=== PATIENT | female | born 1955 | race Caucasian/White ===

== ENCOUNTER 2017-07-23 06:50 | Inpatient (IN) | payer MEDICARE, MEDICAID ==
[2017-07-15 11:17] LABS: BASOPHILS % (AUTO) 0.4 % (0-1); EOSINOPHILS # (AUTO) 0.1 X10'3 (0-0.9); LYMPHOCYTES # (AUTO) 2.6 X10'3 (1.1-4.8); LYMPHOCYTES % (AUTO) 28.4 % (21-51); MEAN CORPUSCULAR HGB CONC 34.4 % (33.0-36.5); MEAN CORPUSCULAR VOLUME 101.6 FL (78-98); MEAN PLATELET VOLUME 8.3 FL (7.4-10.4); MONOCYTES # (AUTO) 0.4 X10'3 (0-0.9); MONOCYTES % (AUTO) 4.8 % (2-12); NEUTROPHILS # (AUTO) 6.1 X10'3 (1.8-7.7); NEUTROPHILS % (AUTO) 65.4 % (42-75); PRE OP HEMATOCRIT 40.8 % (35.0-45.0); PRE OP HEMOGLOBIN 14.1 g/dL (12.0-16.0); PRE OP PLATELET COUNT 149 X10'3 (140-440); RED BLOOD COUNT 4.02 X10'6 (4.20-5.60); RED CELL DISTRIBUTION WIDTH 13.3 % (11.5-14.5)
[2017-07-15 11:18] LABS: CLARITY,URINE Clear (Clear); COLOR,URINE Yellow (Yellow); GLUCOSE, URINE Negative (Neg); KETONES,URINE Negative (Neg); LEUKOCYTE ESTERASE ,URINE Negative (Neg); NITRITES, URINE Negative (Neg); OCCULT BLOOD,URINE Negative (Neg); PROTEIN,URINE Negative (Neg)
[2017-07-15 11:31] LABS: UA COLLECTION TYPE CLN CATCH MIDSTREAM
[2017-07-15 11:31] LABS: ALBUMIN 3.6 G/DL (3.4-5.0); ALKALINE PHOSPHATASE 125 IU/L (46-116); BLOOD UREA NITROGEN 14 MG/DL (7-18); BUN/CREATININE RATIO 12.3 (6.6-38.0); CALCIUM 8.6 MG/DL (8.5-10.1); CHLORIDE 106 MMOL/L (99-107); CREATININE 1.14 MG/DL (0.40-0.90); PRE OP ALT 27 U/L (30-65); PRE OP ANION GAP 10 (8-16); PRE OP AST 23 U/L (10-37); PRE OP BILIRUB, TOTAL 0.3 MG/DL (0.0-1.0); PRE OP GLUCOSE 110 MG/DL (70-104); PRE OP POTASSIUM 3.7 MMOL/L (3.4-5.1); PRE OP SODIUM 142 MMOL/L (135-145); TOTAL CARBON DIOXIDE 25.9 MMOL/L (24-32); TOTAL PROTEIN 7.3 G/DL (6.4-8.2); eGFR 48 ML/MIN
[2017-07-23] VITALS (22 sets, daily range): BP systolic 90–151; BP diastolic 50–90
[~2017-07-23] VITALS: Ht 164.5 cm; Wt 97.4 kg
[~2017-07-23 06:50] MED LIST: AFRIN NS; ALBU8HFA PO; ATOR-2 PO; BACL20TA PO; CHLO-188 PO; ESCI20TA38 PO; FLUT1DIS7 INH; FURO-150 PO; GABA600T2 PO; HYDR-565 PO; IPRA4AER IH; LIDOcaine 1% (10mg/ml) 2ml vial ONE; MELO-102 PO; MONT10TA21 PO; OMEP40CA37 PO; POLY17PO10 PO; TIOT18CA3 INH; TOPI100T18 PO; TRAZ-143 PO; VANCOMYCIN INJ 1000 MG in NORMAL SALINE 250ml IV.SOLN IV ONE; VARE1TAB21 PO; albuterol 2.5 MG/3 ML nebule NEB ONE; cefazolin/dext.iso 2gm/50ml 50 ML IV ONE; famotidine 20mg tablet PO ONE; ringers solution, lacted 1,000 ML IV SCH
[2017-07-23] MEDS ORDERED: ROPIVAcaine 0.5% (5mg/ml) 30ml vial ONE (06:51)
[2017-07-23 07:26] LABS: INR 0.9 INR; PARTIAL THROMBOPLASTIN TIME 27 SECONDS (22-32); PROTHROMBIN TIME 9.5 SECONDS (9.0-12.0)
[2017-07-23] MEDS ORDERED: ringers solution, lacted 1,000 ML IV SCH (07:37)
[2017-07-23] MEDS ORDERED: fentaNYL/PF 50MCG/1 ML 2ML syringe IV PRN ×2 (07:40)
[2017-07-23] MEDS ORDERED: ondansetron/PF 4mg/2ml inj IV PRN ×2 (07:40→13:15)
[2017-07-23] MEDS ORDERED: meperidine/PF 50mg/ml syringe IV PRN ×3 (07:40)
[2017-07-23] MEDS ORDERED: proCHLORperazine 10 MG/2 ml inj IV PRN (07:40)
[2017-07-23] MEDS ORDERED: desflurane 240ml liquid inh. IH ONE (09:00)
[2017-07-23] MEDS ORDERED: midazolam 2 mg/2 ml injection ONE (09:27)
[2017-07-23] MEDS ORDERED: propofol inj 0 ML IV ONE (09:40)
[2017-07-23] MEDS ORDERED: propofol inj 20 ML IV ONE (09:40)
[2017-07-23] MEDS ORDERED: fentaNYL /PF 50mcg/ml 5ml ampule ONE (09:41)
[2017-07-23] MEDS ORDERED: LIDOcaine 2% (20mg/ml) 5ml vial ONE (09:41)
[2017-07-23] MEDS ORDERED: dexamethasone sod phosphate 4mg/ml inj. ONE (09:41)
[2017-07-23] MEDS ORDERED: rocuronium 10mg/ml inj IV ONE (09:41)
[2017-07-23] MEDS ORDERED: ePHEDrine 50MG/ML INJ. ONE (09:56)
[2017-07-23] MEDS ORDERED: ondansetron/PF 4mg/2ml inj ONE (10:06)
[2017-07-23] MEDS ORDERED: diphenhydrAMINE 25mg capsule PO PRN ×2 (13:15)
[2017-07-23] MEDS ORDERED: magnesium hydroxide 30ml (MOM) UD suspension PO PRN (13:15)
[2017-07-23] MEDS ORDERED: naloxone 0.4 mg/ml inj IV PRN (13:15)
[2017-07-23] MEDS ORDERED: bisacodyl 10mg suppository rectal RC PRN (13:15)
[2017-07-23] MEDS ORDERED: metoclopramide 5 mg/ml inj IV PRN (13:15)
[2017-07-23] MEDS ORDERED: acetaminophen 325mg tablet PO PRN (13:15)
[2017-07-23] MEDS ORDERED: HYDROcodone/acetaminophen 10/325mg tab PO PRN (13:15)
[2017-07-23] MEDS ORDERED: mag hydrox/Alum hydrox/simeth 30ml oral suspension PO PRN (13:15)
[2017-07-23] MEDS ORDERED: CADD PCA waste documentation MC PRN (13:15)
[2017-07-23] MEDS: HYDROmorphone/NS 1 mg/ml CADD 50 ML IV SCH ×6 (14:20→23:00)
[2017-07-23] MEDS: potassium cl 20mEq in 1/2 NS 1,000 ML IV SCH ×2 (15:43→21:13)
[2017-07-23] MEDS: cefazolin 1gm/NS 100mL 100 ML IV SCH (15:45)
[2017-07-23] MEDS: celeCOXIB 100mg capsule PO SCH (19:52)
[2017-07-23] MEDS: ascorbic acid 500mg tablet PO SCH (19:52)
[2017-07-23] MEDS: sennosides/docusate sodium tablet PO SCH (19:54)
[2017-07-23] MEDS ORDERED: vancomycin/NS 1 GM ADD-VANTAGE 250 ML IV SCH (20:00)
[2017-07-23] MEDS: sennosides 8.6mg tablet PO SCH (21:00)
[2017-07-23] MEDS: oxymetazoline 15 ML nasal spray NS SCH (21:43)
[2017-07-23] MEDS: varenicline tartrate 0.5mg tablet PO SCH (21:44)
[2017-07-23] MEDS: gabapentin 300mg capsule PO SCH (21:48)
[2017-07-23] MEDS: baclofen 10mg tablet PO SCH (21:48)
[2017-07-23] MEDS: montelukast 10mg tablet PO SCH (21:48)
[2017-07-23] MEDS: atorvastatin 20mg tablet PO SCH (21:49)
[2017-07-23] MEDS: traZODone 50mg tablet PO SCH (21:49)
[2017-07-23] MEDS: topiramate 100mg tablet PO SCH (21:50)
[2017-07-24] VITALS (11 sets, daily range): BP systolic 79–114; BP diastolic 40–66
[2017-07-24] MEDS: cefazolin 1gm/NS 100mL 100 ML IV SCH (00:02)
[2017-07-24] MEDS: HYDROmorphone/NS 1 mg/ml CADD 50 ML IV SCH ×4 (01:00→07:00)
[2017-07-24] MEDS ORDERED: normal saline 250ml IV soln 250 ML IV ONE (01:55)
[2017-07-24] MEDS: potassium cl 20mEq in 1/2 NS 1,000 ML IV SCH ×3 (02:28→18:39)
[2017-07-24 06:27] LABS: BASOPHILS % (AUTO) 0.2 % (0-1); EOSINOPHILS # (AUTO) 0.1 X10'3 (0-0.9); EOSINOPHILS % (AUTO) 1.1 % (0-6); HEMATOCRIT 26.7 % (35.0-45.0); HEMOGLOBIN 9.1 g/dl (12.0-16.0); LYMPHOCYTES # (AUTO) 1.8 X10'3 (1.1-4.8); LYMPHOCYTES % (AUTO) 17.8 % (21-51); MEAN CORPUSCULAR HEMOGLOBIN 34.6 PG (27.0-31.0); MEAN CORPUSCULAR VOLUME 101.6 FL (78-98); MEAN PLATELET VOLUME 8.4 FL (7.4-10.4); MONOCYTES # (AUTO) 0.8 X10'3 (0-0.9); MONOCYTES % (AUTO) 7.4 % (2-12); NEUTROPHILS # (AUTO) 7.5 X10'3 (1.8-7.7); NEUTROPHILS % (AUTO) 73.5 % (42-75); PLATELET COUNT 102 X10'3 (140-440); RED BLOOD COUNT 2.63 X10'6 (4.20-5.60); WHITE BLOOD COUNT 10.2 X10'3 (4.5-11.0)
[2017-07-24 06:38] LABS: ANION GAP 5 (8-16); CHLORIDE 107 MMOL/L (99-107); POTASSIUM 4.4 MMOL/L (3.5-5.1); SODIUM 141 MMOL/L (135-145); TOTAL CARBON DIOXIDE 29.4 MMOL/L (24-32)
[2017-07-24] MEDS: HYDROcodone/acetaminophen 10/325mg tab PO PRN ×4 (07:10→21:06)
[2017-07-24] MEDS ORDERED: chlorpheniramine 4mg tablet PO PRN (07:50)
[2017-07-24] MEDS ORDERED: ALBUTEROL PO PRN (07:50)
[2017-07-24] MEDS: gabapentin 300mg capsule PO SCH ×2 (07:53→21:07)
[2017-07-24] MEDS: celeCOXIB 100mg capsule PO SCH ×2 (07:53→21:07)
[2017-07-24] MEDS: sennosides/docusate sodium tablet PO SCH ×2 (07:53→20:00)
[2017-07-24] MEDS: ascorbic acid 500mg tablet PO SCH ×2 (07:53→21:07)
[2017-07-24] MEDS: pantoprazole 40mg Tablet.DR PO SCH (07:53)
[2017-07-24] MEDS: multivitamins, therapeutics tablet PO SCH (07:53)
[2017-07-24] MEDS: baclofen 10mg tablet PO SCH ×2 (07:54→21:08)
[2017-07-24] MEDS: topiramate 100mg tablet PO SCH ×2 (07:54→21:07)
[2017-07-24] MEDS: enoxaparin 40mg/0.4ml syringe SQ SCH (07:55)
[2017-07-24] MEDS: varenicline tartrate 0.5mg tablet PO SCH ×2 (07:56→21:12)
[2017-07-24] MEDS ORDERED: non-formulary drug (Tiotropium Bromide (Spiriva) 1 PUFF) INH SCH (08:00)
[2017-07-24] MEDS ORDERED: ipratropium/albuterol 3ml nebule IH PRN (08:00)
[2017-07-24] MEDS: furosemide 20MG tablet PO SCH (08:00)
[2017-07-24] MEDS: oxymetazoline 15 ML nasal spray NS SCH ×2 (08:06→21:12)
[2017-07-24] MEDS ORDERED: normal saline 500ml IV soln 1,000 ML IV ONE (09:25)
[2017-07-24] MEDS: sennosides 8.6mg tablet PO SCH (21:00)
[2017-07-24] MEDS: montelukast 10mg tablet PO SCH (21:07)
[2017-07-24] MEDS: atorvastatin 20mg tablet PO SCH (21:07)
[2017-07-24] MEDS: polyethylene glycol 3350 17gm powd pack PO PRN (21:16)
[2017-07-24] MEDS: traZODone 50mg tablet PO SCH (22:38)
[2017-07-25] VITALS (13 sets, daily range): BP systolic 78–122; BP diastolic 43–73
[2017-07-25] MEDS: HYDROcodone/acetaminophen 10/325mg tab PO PRN ×3 (01:08→11:42)
[2017-07-25] MEDS: potassium cl 20mEq in 1/2 NS 1,000 ML IV SCH (05:13)
[2017-07-25 06:00] LABS: BASOPHILS % (AUTO) 0.3 % (0-1); EOSINOPHILS # (AUTO) 0.1 X10'3 (0-0.9); EOSINOPHILS % (AUTO) 0.5 % (0-6); HEMATOCRIT 24.4 % (35.0-45.0); HEMOGLOBIN 8.4 g/dl (12.0-16.0); MEAN CORPUSCULAR HEMOGLOBIN 35.1 PG (27.0-31.0); MEAN CORPUSCULAR HGB CONC 34.5 % (33.0-36.5); MEAN CORPUSCULAR VOLUME 101.8 FL (78-98); MEAN PLATELET VOLUME 8.3 FL (7.4-10.4); MONOCYTES # (AUTO) 0.6 X10'3 (0-0.9); MONOCYTES % (AUTO) 5.4 % (2-12); NEUTROPHILS # (AUTO) 8.2 X10'3 (1.8-7.7); NEUTROPHILS % (AUTO) 75.8 % (42-75); PLATELET COUNT 99 X10'3 (140-440); RED CELL DISTRIBUTION WIDTH 13.1 % (11.5-14.5); WHITE BLOOD COUNT 10.8 X10'3 (4.5-11.0)
[2017-07-25] MEDS: sennosides/docusate sodium tablet PO SCH ×2 (08:00→20:00)
[2017-07-25] MEDS: multivitamins, therapeutics tablet PO SCH (08:23)
[2017-07-25] MEDS: gabapentin 300mg capsule PO SCH ×2 (08:23→20:41)
[2017-07-25] MEDS: celeCOXIB 100mg capsule PO SCH ×2 (08:24→20:42)
[2017-07-25] MEDS: ascorbic acid 500mg tablet PO SCH ×2 (08:24→20:41)
[2017-07-25] MEDS: pantoprazole 40mg Tablet.DR PO SCH (08:24)
[2017-07-25] MEDS: topiramate 100mg tablet PO SCH ×2 (08:24→20:41)
[2017-07-25] MEDS: oxymetazoline 15 ML nasal spray NS SCH ×2 (08:25→20:42)
[2017-07-25] MEDS: baclofen 10mg tablet PO SCH ×2 (08:25→20:41)
[2017-07-25] MEDS: varenicline tartrate 0.5mg tablet PO SCH ×2 (08:25→20:41)
[2017-07-25] MEDS: enoxaparin 40mg/0.4ml syringe SQ SCH (08:26)
[2017-07-25] MEDS: furosemide 20MG tablet PO SCH (10:02)
[2017-07-25] MEDS: montelukast 10mg tablet PO SCH (20:40)
[2017-07-25] MEDS: traZODone 50mg tablet PO SCH (20:41)
[2017-07-25] MEDS: atorvastatin 20mg tablet PO SCH (20:41)
[2017-07-25] MEDS: polyethylene glycol 3350 17gm powd pack PO PRN (20:47)
[2017-07-25] MEDS: sennosides 8.6mg tablet PO SCH (20:53)
[2017-07-25 22:38] LABS: HEMATOCRIT 25.3 % (35.0-45.0); HEMOGLOBIN 8.7 g/dl (12.0-16.0); MEAN CORPUSCULAR HEMOGLOBIN 34.1 PG (27.0-31.0); MEAN CORPUSCULAR HGB CONC 34.4 % (33.0-36.5); MEAN CORPUSCULAR VOLUME 99.2 FL (78-98); MEAN PLATELET VOLUME 8.6 FL (7.4-10.4); PLATELET COUNT 99 X10'3 (140-440); RED BLOOD COUNT 2.55 X10'6 (4.20-5.60); WHITE BLOOD COUNT 9.8 X10'3 (4.5-11.0)
[2017-07-26 00:47] VITALS: BP 114/55
[2017-07-26 01:22] VITALS: BP 99/62
[2017-07-26] MEDS: HYDROcodone/acetaminophen 10/325mg tab PO PRN ×3 (05:35→15:07)
[2017-07-26 06:00] VITALS: BP 105/66
[2017-07-26 06:29] LABS: BASOPHILS % (AUTO) 0.3 % (0-1); EOSINOPHILS # (AUTO) 0.2 X10'3 (0-0.9); EOSINOPHILS % (AUTO) 2.2 % (0-6); HEMOGLOBIN 10.1 g/dl (12.0-16.0); LYMPHOCYTES % (AUTO) 21.3 % (21-51); MEAN CORPUSCULAR HGB CONC 34.7 % (33.0-36.5); MEAN CORPUSCULAR VOLUME 97.8 FL (78-98); MEAN PLATELET VOLUME 8.5 FL (7.4-10.4); MONOCYTES # (AUTO) 0.5 X10'3 (0-0.9); MONOCYTES % (AUTO) 5.7 % (2-12); NEUTROPHILS # (AUTO) 6.6 X10'3 (1.8-7.7); NEUTROPHILS % (AUTO) 70.5 % (42-75); PLATELET COUNT 104 X10'3 (140-440); RED BLOOD COUNT 2.96 X10'6 (4.20-5.60); RED CELL DISTRIBUTION WIDTH 15.9 % (11.5-14.5); WHITE BLOOD COUNT 9.4 X10'3 (4.5-11.0)
[2017-07-26] MEDS: sennosides/docusate sodium tablet PO SCH ×2 (08:00→20:00)
[2017-07-26] MEDS: baclofen 10mg tablet PO SCH ×2 (08:31→20:31)
[2017-07-26] MEDS: ascorbic acid 500mg tablet PO SCH ×2 (08:31→20:32)
[2017-07-26] MEDS: multivitamins, therapeutics tablet PO SCH (08:31)
[2017-07-26] MEDS: topiramate 100mg tablet PO SCH ×2 (08:32→20:32)
[2017-07-26] MEDS: gabapentin 300mg capsule PO SCH ×2 (08:32→20:31)
[2017-07-26] MEDS: celeCOXIB 100mg capsule PO SCH ×2 (08:33→20:30)
[2017-07-26] MEDS: varenicline tartrate 0.5mg tablet PO SCH ×2 (08:33→20:30)
[2017-07-26] MEDS: oxymetazoline 15 ML nasal spray NS SCH ×2 (08:34→20:30)
[2017-07-26] MEDS: pantoprazole 40mg Tablet.DR PO SCH (08:34)
[2017-07-26] MEDS: enoxaparin 40mg/0.4ml syringe SQ SCH (08:35)
[2017-07-26 10:00] VITALS: BP 94/51
[2017-07-26 18:00] VITALS: BP 120/65
[2017-07-26] MEDS: montelukast 10mg tablet PO SCH (20:32)
[2017-07-26] MEDS: atorvastatin 20mg tablet PO SCH (20:42)
[2017-07-26] MEDS: polyethylene glycol 3350 17gm powd pack PO PRN (20:43)
[2017-07-26] MEDS: sennosides 8.6mg tablet PO SCH (21:00)
[2017-07-26] MEDS: traZODone 50mg tablet PO SCH (21:52)
[2017-07-26 22:00] VITALS: BP 115/70
[2017-07-27] MEDS: HYDROcodone/acetaminophen 10/325mg tab PO PRN ×2 (03:36→07:40)
[2017-07-27 06:00] VITALS: BP 90/52
[2017-07-27] MEDS: sennosides/docusate sodium tablet PO SCH (07:28)
[2017-07-27] MEDS: varenicline tartrate 0.5mg tablet PO SCH (07:36)
[2017-07-27] MEDS: gabapentin 300mg capsule PO SCH (07:37)
[2017-07-27] MEDS: ascorbic acid 500mg tablet PO SCH (07:37)
[2017-07-27] MEDS: multivitamins, therapeutics tablet PO SCH (07:39)
[2017-07-27] MEDS: topiramate 100mg tablet PO SCH (07:39)
[2017-07-27] MEDS: pantoprazole 40mg Tablet.DR PO SCH (07:41)
[2017-07-27] MEDS: baclofen 10mg tablet PO SCH (07:42)
[2017-07-27] MEDS: celeCOXIB 100mg capsule PO SCH (07:43)
[2017-07-27] MEDS: oxymetazoline 15 ML nasal spray NS SCH (07:44)
[2017-07-27] MEDS: enoxaparin 40mg/0.4ml syringe SQ SCH (07:45)
== END 2017-07-27 10:10 | disposition home or self-care (01) | DRG 470 ==
LOC: PAS IN 06:50 → EDSTATUS 07:30 → ORTHO 4S 15:00
PROVIDERS: ADMIT Orthopaedic Surgery; ATTEND Orthopaedic Surgery
PROC: 0SR901Z Replacement of Right Hip Joint with Metal Synthetic Substitute, Open Approach (ICD-10-PCS; principal; 2017-07-23 09:15)
PROC: 30233N1 Transfusion of Nonautologous Red Blood Cells into Peripheral Vein, Percutaneous Approach (ICD-10-PCS; 2017-07-25)
DX: M16.11 Unilateral primary osteoarthritis, right hip (principal); Z99.81 Dependence on supplemental oxygen; E66.01 Morbid (severe) obesity due to excess calories; D62 Acute posthemorrhagic anemia; E78.5 Hyperlipidemia, unspecified; J44.9 Chronic obstructive pulmonary disease, unspecified; K21.9 Gastro-esophageal reflux disease without esophagitis; F41.9 Anxiety disorder, unspecified; G40.909 Epilepsy, unspecified, not intractable, without status epilepticus; G89.4 Chronic pain syndrome; F32.9 Major depressive disorder, single episode, unspecified; G35 Multiple sclerosis; K58.9 Irritable bowel syndrome, unspecified; M54.9 Dorsalgia, unspecified; Z98.1 Arthrodesis status; Z79.899 Other long term (current) drug therapy; Z88.2 Allergy status to sulfonamides; Z88.6 Allergy status to analgesic agent; Z88.7 Allergy status to serum and vaccine; Z91.041 Radiographic dye allergy status; Z85.41 Personal history of malignant neoplasm of cervix uteri
CPT/HCPCS: 36415; 71046; 73502; 76000; 80051; 80053; 81003; 85025; 85027; 85610; 85730; 86885; 86900; 86901; 86920; 87070; 94640; 94760; 97110; 97116; 97162; 97530; A6212; A6213; A6250; A6257; A6258; A6446; A6449; A6454; A7000; C1776; J0690; J1100; J1170; J1644; J1650; J2001; J2175; J2250; J2405; J2704; J2795; J3010; J3370; J3490; J7030; J7120; P9016

== ENCOUNTER 2018-03-25 10:15 | Day surgery (SDC) | payer MEDICARE, MEDICAID ==
[2018-03-22 16:43] LABS: BASOPHILS % (AUTO) 0.1 % (0-1); EOSINOPHILS # (AUTO) 0.1 X10'3 (0-0.9); EOSINOPHILS % (AUTO) 1.6 % (0-6); LYMPHOCYTES # (AUTO) 3.3 X10'3 (1.1-4.8); LYMPHOCYTES % (AUTO) 36.9 % (21-51); MEAN CORPUSCULAR HEMOGLOBIN 34.4 PG (27.0-31.0); MEAN CORPUSCULAR HGB CONC 33.3 % (33.0-36.5); MEAN CORPUSCULAR VOLUME 103.1 FL (78-98); MEAN PLATELET VOLUME 8.1 FL (7.4-10.4); MONOCYTES # (AUTO) 0.5 X10'3 (0-0.9); MONOCYTES % (AUTO) 5.4 % (2-12); PRE OP HEMATOCRIT 41.9 % (35.0-45.0); PRE OP PLATELET COUNT 178 X10'3 (140-440); RED BLOOD COUNT 4.07 X10'6 (4.20-5.60); RED CELL DISTRIBUTION WIDTH 13.8 % (11.5-14.5)
[2018-03-22 17:00] LABS: ALBUMIN 3.2 G/DL (3.4-5.0); ALBUMIN/GLOBULIN RATIO 0.8 (1.1-1.5); ALKALINE PHOSPHATASE 200 IU/L (46-116); BLOOD UREA NITROGEN 12 MG/DL (7-18); BUN/CREATININE RATIO 10.1 (6.6-38.0); CALCIUM 8.9 MG/DL (8.5-10.1); CHLORIDE 106 MMOL/L (99-107); CREATININE 1.19 MG/DL (0.40-0.90); PRE OP ANION GAP 12 (8-16); PRE OP AST 67 U/L (10-37); PRE OP BILIRUB, TOTAL 0.3 MG/DL (0.0-1.0); PRE OP GLUCOSE 117 MG/DL (70-104); PRE OP POTASSIUM 3.4 MMOL/L (3.4-5.1); PRE OP SODIUM 144 MMOL/L (135-145); TOTAL CARBON DIOXIDE 25.6 MMOL/L (24-32); TOTAL PROTEIN 7.3 G/DL (6.4-8.2); eGFR 46 ML/MIN
[2018-03-22 17:02] LABS: PRE OP ALT 92 U/L (30-65)
[~2018-03-25] VITALS: Ht 164.5 cm; Wt 102.1 kg
[2018-03-25] VITALS (8 sets, daily range): BP systolic 94–132; BP diastolic 32–87
[~2018-03-25 10:15] MED LIST changes: -CHLO-188 PO; +DOCUMENT DATE & TIME OF BETA-BLOCKER PO ONE; +ESOM40CA30 PO; +HYDR-4353 PO; -HYDR-565 PO; -LIDOcaine 1% (10mg/ml) 2ml vial ONE; -OMEP40CA37 PO; -TRAZ-143 PO; +TRAZ-218 PO; -VARE1TAB21 PO; -albuterol 2.5 MG/3 ML nebule NEB ONE; +albuterol 2.5 MG/3 ML nebule NEB PRN; +cefazolin/dext.iso 2gm/100 ML IV ONE; -cefazolin/dext.iso 2gm/50ml 50 ML IV ONE
[2018-03-25] MEDS ORDERED: BUPIVAcaine/PF 2.5mg/ml (0.25%) 10ml vial ONE (11:54)
[2018-03-25] MEDS ORDERED: ipratropium/albuterol 3ml nebule NEB ONE (12:15)
[2018-03-25] MEDS ORDERED: cloNIDine hcl/PF 100mcg/ml inj ONE (12:32)
[2018-03-25] MEDS ORDERED: fentaNYL/PF 50MCG/1 ML 2ML syringe ONE (12:33)
[2018-03-25] MEDS ORDERED: propofol inj 20 ML IV ONE (12:34)
[2018-03-25] MEDS ORDERED: MIDAZolam 5mg/5ml vial ONE (12:34)
[2018-03-25] MEDS ORDERED: ROPIVAcaine 0.5% (5mg/ml) 30ml vial ONE (12:34)
[2018-03-25] MEDS ORDERED: LIDOcaine 1%/PF 5ML 10 MG/ML VIAL ONE (12:34)
[2018-03-25] MEDS ORDERED: dexamethasone sod phosphate 10mg/ml inj ONE (12:37)
[2018-03-25] MEDS ORDERED: sevoflurane 250ml liquid IH ONE (12:37)
[2018-03-25] MEDS ORDERED: ondansetron/PF 4mg/2ml inj ONE (12:37)
[2018-03-25] MEDS ORDERED: ringers solution, lacted 1,000 ML IV SCH (14:12)
[2018-03-25] MEDS ORDERED: meperidine/PF 25mg/ml syringe IV PRN ×3 (14:15)
[2018-03-25] MEDS ORDERED: proCHLORperazine 10 MG/2 ml inj IV PRN (14:15)
[2018-03-25] MEDS ORDERED: ondansetron/PF 4mg/2ml inj IV PRN (14:15)
== END 2018-03-25 16:20 | disposition home or self-care (01) ==
LOC: PAS 10:15
PROVIDERS: ATTEND Orthopaedic Surgery
DX: S43.432A Superior glenoid labrum lesion of left shoulder, initial encounter (principal); S46.012A Strain of muscle(s) and tendon(s) of the rotator cuff of left shoulder, initial encounter; M94.212 Chondromalacia, left shoulder; M65.812 Other synovitis and tenosynovitis, left shoulder; M19.012 Primary osteoarthritis, left shoulder; M75.52 Bursitis of left shoulder; F41.9 Anxiety disorder, unspecified; K21.9 Gastro-esophageal reflux disease without esophagitis; E78.5 Hyperlipidemia, unspecified; E66.01 Morbid (severe) obesity due to excess calories; J44.9 Chronic obstructive pulmonary disease, unspecified; F17.210 Nicotine dependence, cigarettes, uncomplicated; I25.10 Atherosclerotic heart disease of native coronary artery without angina pectoris; F32.89 Other specified depressive episodes; G43.909 Migraine, unspecified, not intractable, without status migrainosus; G35 Multiple sclerosis; M06.9 Rheumatoid arthritis, unspecified; M19.90 Unspecified osteoarthritis, unspecified site; G89.29 Other chronic pain; F41.8 Other specified anxiety disorders; Z90.89 Acquired absence of other organs; Z90.49 Acquired absence of other specified parts of digestive tract; Z99.81 Dependence on supplemental oxygen; Z86.14 Personal history of Methicillin resistant Staphylococcus aureus infection; Z85.41 Personal history of malignant neoplasm of cervix uteri; Z79.891 Long term (current) use of opiate analgesic; Z88.2 Allergy status to sulfonamides; Z91.048 Other nonmedicinal substance allergy status; Z88.3 Allergy status to other anti-infective agents; Z88.5 Allergy status to narcotic agent; Z88.7 Allergy status to serum and vaccine; Z96.641 Presence of right artificial hip joint; Z68.37 Body mass index [BMI] 37.0-37.9, adult; Z90.711 Acquired absence of uterus with remaining cervical stump; Z72.89 Other problems related to lifestyle; Z88.8 Allergy status to other drugs, medicaments and biological substances; Z98.890 Other specified postprocedural states; Z79.899 Other long term (current) drug therapy; X58.XXXA Exposure to other specified factors, initial encounter; Y93.89 Activity, other specified; Y92.89 Other specified places as the place of occurrence of the external cause; Y99.8 Other external cause status
CPT/HCPCS: 23410; 29807; 29824; 29826; 36415; 80053; 85025; 93005; 94640; A6257; A6449; C1713; J0690; J0735; J1100; J2001; J2250; J2405; J2704; J3010; J3370; J3490; J7120; L3650; A6250; A7000; J2795; J7030

== ENCOUNTER 2018-05-04 10:12 | Outpatient (CLI) | payer MEDICARE, MEDICAID ==
[~2018-05-04 10:12] MED LIST changes: -DOCUMENT DATE & TIME OF BETA-BLOCKER PO ONE; -VANCOMYCIN INJ 1000 MG in NORMAL SALINE 250ml IV.SOLN IV ONE; -albuterol 2.5 MG/3 ML nebule NEB PRN; -cefazolin/dext.iso 2gm/100 ML IV ONE; -famotidine 20mg tablet PO ONE; -ringers solution, lacted 1,000 ML IV SCH
== END 2018-05-04 23:59 | disposition home or self-care (01) ==
LOC: RAD 10:12
PROVIDERS: ATTEND Family Medicine
DX: R56.9 Unspecified convulsions (principal); G43.909 Migraine, unspecified, not intractable, without status migrainosus; J44.9 Chronic obstructive pulmonary disease, unspecified; F17.200 Nicotine dependence, unspecified, uncomplicated; I50.9 Heart failure, unspecified
CPT/HCPCS: 95816

== ENCOUNTER 2018-05-27 09:34 | Outpatient (CLI) | payer MEDICARE, MEDICAID ==
[2018-05-27] MEDS ORDERED: gadopentetate dimeglumine 7.5 MMOL/15 ML syringe ONE (10:50)
== END 2018-05-27 23:59 | disposition home or self-care (01) ==
LOC: RAD 09:34
PROVIDERS: ATTEND Family Medicine
DX: R56.9 Unspecified convulsions (principal); I50.9 Heart failure, unspecified; J44.9 Chronic obstructive pulmonary disease, unspecified; F17.200 Nicotine dependence, unspecified, uncomplicated; Z79.899 Other long term (current) drug therapy
CPT/HCPCS: 70553; A9579

== ENCOUNTER 2021-07-29 11:40 | Inpatient (IN) | payer MEDICARE, MEDICAID ==
[~2021-07-29] VITALS: Ht 162.6 cm; Wt 87.3 kg
[~2021-07-29 11:40] MED LIST changes: -ESCI20TA38 PO; +ESCI20TA39 PO; -ESOM40CA30 PO; +ESOM40CA49 PO; +GABA600T13 PO; -GABA600T2 PO; +TOP100T PO; -TOPI100T18 PO; -TRAZ-218 PO; +TRAZ-251 PO
[2021-07-29 13:05] LABS: BASOPHILS % (AUTO) 0.1 % (0-1); EOSINOPHILS % (AUTO) 0 % (0-6); HEMATOCRIT 33.9 % (35.0-45.0); HEMOGLOBIN 11.5 g/dl (12.0-16.0); LYMPHOCYTES # (AUTO) 0.8 X10'3 (1.1-4.8); LYMPHOCYTES % (AUTO) 5.9 % (21-51); MEAN CORPUSCULAR HEMOGLOBIN 33.4 PG (27.0-31.0); MEAN CORPUSCULAR HGB CONC 33.9 g/dL (33.0-36.5); MEAN CORPUSCULAR VOLUME 98.5 FL (78-98); MEAN PLATELET VOLUME 7.5 FL (7.4-10.4); MONOCYTES # (AUTO) 0.6 X10'3 (0-0.9); MONOCYTES % (AUTO) 4.3 % (2-12); NEUTROPHILS # (AUTO) 12.3 X10'3 (1.8-7.7); NEUTROPHILS % (AUTO) 89.7 % (42-75); PLATELET COUNT 185 X10'3 (140-440); RED BLOOD COUNT 3.44 X10'6 (4.20-5.60); RED CELL DISTRIBUTION WIDTH 12.8 % (11.5-14.5); WHITE BLOOD COUNT 13.7 X10'3 (4.5-11.0)
[2021-07-29 13:33] LABS: ALANINE AMINOTRANSFERASE 37 U/L (12-78); ALBUMIN 2.2 G/DL (3.4-5.0); ALBUMIN/GLOBULIN RATIO 0.5 (1.1-1.5); ALKALINE PHOSPHATASE 108 IU/L (46-116); ANION GAP 11 (8-16); ASPARTATE AMINO TRANSFERASE 77 U/L (10-37); BILIRUBIN,TOTAL 0.6 MG/DL (0.1-1.0); BLOOD UREA NITROGEN 11 MG/DL (7-18); BUN/CREATININE RATIO 13.8 (6.6-38.0); CALCIUM 7.9 MG/DL (8.5-10.1); CHLORIDE 102 MMOL/L (99-107); GLUCOSE 101 MG/DL (70-104); LIPASE 161 U/L (73-393); SODIUM 138 MMOL/L (135-145); TOTAL PROTEIN 6.7 G/DL (6.4-8.2); eGFR 72 ML/MIN
[2021-07-29 13:44] LABS: POTASSIUM 2.5 MMOL/L (3.5-5.1)
[2021-07-29] MEDS ORDERED: potassium Cl 20 mEq SR tablet PO STA ×2 (13:48→19:29)
[2021-07-29] MEDS ORDERED: magnesium 2GM in 50ml NS 50 ML IV ONE (13:50)
[2021-07-29] MEDS ORDERED: CefTRIAXone/D5W-Rocephin 1gm 50 ML IV ONE (15:00)
[2021-07-29] MEDS ORDERED: azithromycin 250mg tablet PO ONE (15:00)
[2021-07-29] MEDS ORDERED: acetaminophen 325mg tablet PO PRN ×2 (15:45)
[2021-07-29] MEDS ORDERED: HYDROmorphone inj. 0.5 MG/0.5 ML DISP.SYRIN IV PRN (15:45)
[2021-07-29] MEDS ORDERED: potassium CL 10mEq/100ml bag 100 ML IV PRN (15:45)
[2021-07-29] MEDS ORDERED: HYDROmorphone/PF 0.2 MG/ML SYRINGE IV PRN (15:45)
[2021-07-29] MEDS ORDERED: ALBUTEROL INHALER 1 PUFF/90 MCG INHALER IH PRN (15:45)
[2021-07-29] MEDS ORDERED: magnesium 2GM in 50ml NS 50 ML IV PRN (15:45)
[2021-07-29] MEDS ORDERED: metoclopramide 5 mg/ml inj IV PRN (15:45)
[2021-07-29] MEDS ORDERED: HYDROcodone/acetaminophen 10/325mg tab PO PRN ×2 (15:45→18:15)
[2021-07-29] MEDS ORDERED: potassium Cl 20 mEq SR tablet PO PRN (15:45)
[2021-07-29] MEDS ORDERED: acetaminophen 650mg rectal suppository RC PRN (15:45)
[2021-07-29] MEDS ORDERED: magnesium hydroxide 30ml (MOM) UD suspension PO PRN (15:45)
[2021-07-29] MEDS ORDERED: bisacodyl 10mg suppository rectal RC PRN (15:45)
[2021-07-29] MEDS ORDERED: magnesium Cl slow-release 64mg tablet PO PRN (15:45)
[2021-07-29] MEDS ORDERED: ondansetron/PF 4mg/2ml inj IV PRN (15:45)
[2021-07-29] MEDS ORDERED: ondansetron 4mg rapidly disintigrating tab PO PRN (15:45)
[2021-07-29] MEDS ORDERED: magnesium 4gm in 100ml NS 100 ML IV PRN (15:45)
[2021-07-29] MEDS ORDERED: HYDROcodone/acetaminophen 5mg/325mg tablet PO PRN (15:45)
[2021-07-29] MEDS ORDERED: mag hydrox/Alum hydrox/simeth 30ml oral suspension PO PRN (15:45)
[2021-07-29] MEDS ORDERED: HYDR-3972 PO (15:47)
[2021-07-29] MEDS ORDERED: FLUT1AER IH (15:47)
[2021-07-29] MEDS ORDERED: LEVE500T PO (15:47)
[2021-07-29] MEDS ORDERED: POTA10TA37 PO (15:47)
[2021-07-29] MEDS ORDERED: MONT-40 PO (15:47)
[2021-07-29] MEDS ORDERED: OMEP40CA21 PO (15:47)
[2021-07-29] MEDS ORDERED: BACL20TA7 PO (15:47)
[2021-07-29] MEDS ORDERED: FURO80TA3 PO (15:47)
[2021-07-29] MEDS ORDERED: LINA290C PO (15:47)
[2021-07-29] MEDS ORDERED: iohexol 350MG/ML 100ml bottle IV ONE (16:06)
[2021-07-29 16:35] LABS: D-DIMER 0.94 MG/L FEU (0-0.50)
[2021-07-29] MEDS: normal saline 1000ml 1,000 ML IV SCH (17:43)
[2021-07-29] MEDS: DEXAMETHASONE 6 MG TABLET PO SCH ×2 (17:44→20:00)
[2021-07-29 19:17] LABS: C-REACTIVE PROTEIN 12.88 MG/DL (0.0-0.5); MAGNESIUM 2.2 MG/DL (1.5-2.4)
[2021-07-29 19:20] LABS: POTASSIUM 2.9 MMOL/L (3.5-5.1)
[2021-07-29] MEDS: K and/or MAG REPLACEMENT MC SCH (19:59)
[2021-07-29 20:13] LABS: URINE HCG NEGATIVE (NEG)
[2021-07-29 20:15] LABS: CLARITY,URINE CLEAR (Clear); COLOR,URINE YELLOW (Yellow); GLUCOSE, URINE NEGATIVE (Neg); KETONES,URINE 15 mg/dl (Neg); LEUKOCYTE ESTERASE ,URINE NEGATIVE (Neg); NITRITES, URINE NEGATIVE (Neg); OCCULT BLOOD,URINE NEGATIVE (Neg); PH,URINE 7.5 (4.8-8.0); PROTEIN,URINE TRACE mg/dl (Neg)
[2021-07-29] MEDS: levetiracetam 250mg tablet PO SCH (20:23)
[2021-07-29] MEDS: topiramate 100mg tablet PO SCH (20:23)
[2021-07-29 20:29] LABS: UA COLLECTION TYPE STRAIGHT CATH
[2021-07-29 20:35] LABS: BACTERIA,URINE FEW /HPF (Neg); RBC,URINE 0-2 /HPF (0-2); SQUAMOUS EPITHELIAL CELL,UR FEW /LPF (FEW)
[2021-07-29] MEDS: ipratropium/albuterol 3ml nebule IH SCH (20:43)
[2021-07-29] MEDS: atorvastatin 20mg tablet PO SCH (21:58)
[2021-07-29] MEDS: potassium Cl 20 mEq SR tablet PO PRN (21:58)
[2021-07-29] MEDS: traZODone 50mg tablet PO SCH (21:58)
[2021-07-29 22:00] VITALS: BP 107/61
[2021-07-30] MEDS: normal saline 1000ml 1,000 ML IV SCH ×3 (01:45→19:48)
[2021-07-30] MEDS: potassium Cl 20 mEq SR tablet PO PRN ×2 (02:02→08:08)
[2021-07-30 02:09] VITALS: BP 105/64
[2021-07-30] MEDS: ipratropium/albuterol 3ml nebule IH SCH ×2 (02:23→09:00)
--- NOTE | 2021-07-30 06:15 | NUR ---
Patient in room [facility] 4023. I have received report from Richelle LAY and had the opportunity to ask questions and assume patient care.
--- NOTE | 2021-07-30 06:28 | NUR ---
Problems reprioritized. Patient report given, questions answered & plan of care reviewed with ALIREZA MADDEN.
[2021-07-30 06:46] VITALS: BP 82/52
[2021-07-30 07:33] LABS: BASOPHILS % (AUTO) 0.1 % (0-1); EOSINOPHILS % (AUTO) 0 % (0-6); HEMOGLOBIN 10.9 g/dl (12.0-16.0); LYMPHOCYTES # (AUTO) 0.6 X10'3 (1.1-4.8); LYMPHOCYTES % (AUTO) 9.1 % (21-51); MEAN CORPUSCULAR HEMOGLOBIN 33.8 PG (27.0-31.0); MEAN CORPUSCULAR VOLUME 99.4 FL (78-98); MEAN PLATELET VOLUME 7.8 FL (7.4-10.4); MONOCYTES # (AUTO) 0.3 X10'3 (0-0.9); MONOCYTES % (AUTO) 4.4 % (2-12); NEUTROPHILS # (AUTO) 5.8 X10'3 (1.8-7.7); NEUTROPHILS % (AUTO) 86.4 % (42-75); PLATELET COUNT 191 X10'3 (140-440); RED BLOOD COUNT 3.22 X10'6 (4.20-5.60); RED CELL DISTRIBUTION WIDTH 12.7 % (11.5-14.5); WHITE BLOOD COUNT 6.7 X10'3 (4.5-11.0)
[2021-07-30 07:40] LABS: APTT 31 SECONDS (22-32); D-DIMER 0.83 MG/L FEU (0-0.50)
[2021-07-30 07:54] LABS: ALANINE AMINOTRANSFERASE 35 U/L (12-78); ALBUMIN 2.2 G/DL (3.4-5.0); ALBUMIN/GLOBULIN RATIO 0.6 (1.1-1.5); ALKALINE PHOSPHATASE 103 IU/L (46-116); ANION GAP 11 (8-16); ASPARTATE AMINO TRANSFERASE 64 U/L (10-37); BILIRUBIN,TOTAL 0.5 MG/DL (0.1-1.0); BLOOD UREA NITROGEN 13 MG/DL (7-18); BUN/CREATININE RATIO 19.7 (6.6-38.0); C-REACTIVE PROTEIN 11.23 MG/DL (0.0-0.5); CALCIUM 7.7 MG/DL (8.5-10.1); CHLORIDE 111 MMOL/L (99-107); CHOL/HDL RATIO 2.8 (0.00-4.99); CHOLESTEROL 76 MG/DL (0-200); CREATININE 0.66 MG/DL (0.40-0.90); GLUCOSE 127 MG/DL (70-104); HDL CHOLESTEROL 27 MG/DL (35-60); LACTATE DEHYDROGENASE 371 U/L (81-234); LDL CHOLESTEROL 33 MG/DL (50-100); MAGNESIUM 2.6 MG/DL (1.5-2.4); PHOSPHORUS 3.2 MG/DL (2.3-4.5); POTASSIUM 4.2 MMOL/L (3.5-5.1); SODIUM 144 MMOL/L (135-145); TOTAL CARBON DIOXIDE 21.6 MMOL/L (24-32); TOTAL PROTEIN 5.9 G/DL (6.4-8.2); TRIGLYCERIDES 88 MG/DL (20-135); eGFR 90 ML/MIN
[2021-07-30] MEDS ORDERED: non-formulary drug (Fluticasone/Vilanterol (Breo Ellipta 100-25 Mcg INH) 1 PUFF) IH SCH (08:00)
[2021-07-30] MEDS ORDERED: non-formulary drug (Tiotropium Bromide (Spiriva) 1 PUFF) INH SCH (08:00)
[2021-07-30] MEDS: K and/or MAG REPLACEMENT MC SCH ×2 (08:00→20:00)
[2021-07-30] MEDS: furosemide 40mg tablet PO SCH (08:08)
[2021-07-30] MEDS: montelukast 10mg tablet PO SCH (08:08)
[2021-07-30] MEDS: potassium chloride 10mEq ER tablet PO SCH (08:09)
[2021-07-30] MEDS: pantoprazole 40mg Tablet.DR PO SCH (08:09)
[2021-07-30] MEDS: baclofen 10mg tablet PO SCH (08:09)
[2021-07-30] MEDS: levetiracetam 250mg tablet PO SCH ×2 (08:09→19:45)
[2021-07-30] MEDS: topiramate 100mg tablet PO SCH ×2 (08:09→19:45)
[2021-07-30] MEDS: DEXAMETHASONE 6 MG TABLET PO SCH ×2 (08:10→19:44)
[2021-07-30 10:00] VITALS: BP 120/88
--- NOTE | 2021-07-30 11:29 | NUR ---
PAGER ID: [phone] MESSAGE: [phone] Gisele Mclean The patient doesn't have heparin, nor Pulmicort thank you, Kamilah
[2021-07-30] MEDS ORDERED: ALBUTEROL INHALER 1 PUFF/90 MCG INHALER IH PRN (13:40)
[2021-07-30 14:00] VITALS: BP 125/64
[2021-07-30] MEDS: ALBUTEROL INHALER 1 PUFF/90 MCG INHALER IH SCH ×3 (16:00→23:18)
--- NOTE | 2021-07-30 18:20 | NUR ---
Problems reprioritized. Patient report given, questions answered & plan of care reviewed with Judith LAY.
[2021-07-30 18:30] VITALS: BP 113/54
--- NOTE | 2021-07-30 18:30 | NUR ---
Received report from Kamilah LAY.
[2021-07-30] MEDS: enoxaparin 40mg/0.4ml syringe SUBCUT SCH (19:44)
[2021-07-30 22:00] VITALS: BP 125/50
[2021-07-30] MEDS: atorvastatin 20mg tablet PO SCH (22:01)
[2021-07-30] MEDS: traZODone 50mg tablet PO SCH (22:04)
[2021-07-31 02:12] VITALS: BP 102/49
[2021-07-31] MEDS: ALBUTEROL INHALER 1 PUFF/90 MCG INHALER IH SCH ×6 (02:29→23:52)
[2021-07-31 06:00] VITALS: BP 111/55
--- NOTE | 2021-07-31 06:30 | NUR ---
Report given to Mercedez LAY.
[2021-07-31] MEDS: levetiracetam 250mg tablet PO SCH ×2 (07:14→19:48)
[2021-07-31] MEDS: baclofen 10mg tablet PO SCH (07:15)
[2021-07-31] MEDS: furosemide 40mg tablet PO SCH (07:16)
[2021-07-31] MEDS: potassium chloride 10mEq ER tablet PO SCH (07:16)
[2021-07-31] MEDS: DEXAMETHASONE 6 MG TABLET PO SCH ×2 (07:16→19:48)
[2021-07-31] MEDS: montelukast 10mg tablet PO SCH (07:17)
[2021-07-31] MEDS: pantoprazole 40mg Tablet.DR PO SCH (07:17)
[2021-07-31] MEDS: topiramate 100mg tablet PO SCH ×2 (07:17→19:48)
[2021-07-31] MEDS: normal saline 1000ml 1,000 ML IV SCH ×3 (07:19→19:57)
[2021-07-31] MEDS: enoxaparin 40mg/0.4ml syringe SUBCUT SCH ×2 (07:19→19:48)
[2021-07-31 07:20] LABS: BASOPHILS % (AUTO) 0.1 % (0-1); EOSINOPHILS % (AUTO) 0 % (0-6); HEMATOCRIT 29.5 % (35.0-45.0); HEMOGLOBIN 10.1 g/dl (12.0-16.0); LYMPHOCYTES # (AUTO) 0.8 X10'3 (1.1-4.8); LYMPHOCYTES % (AUTO) 8.3 % (21-51); MEAN CORPUSCULAR HEMOGLOBIN 34.4 PG (27.0-31.0); MEAN CORPUSCULAR HGB CONC 34.4 g/dL (33.0-36.5); MEAN CORPUSCULAR VOLUME 100.2 FL (78-98); MEAN PLATELET VOLUME 7.8 FL (7.4-10.4); MONOCYTES # (AUTO) 0.7 X10'3 (0-0.9); MONOCYTES % (AUTO) 6.8 % (2-12); NEUTROPHILS # (AUTO) 8.5 X10'3 (1.8-7.7); NEUTROPHILS % (AUTO) 84.8 % (42-75); PLATELET COUNT 191 X10'3 (140-440); RED BLOOD COUNT 2.94 X10'6 (4.20-5.60); RED CELL DISTRIBUTION WIDTH 12.8 % (11.5-14.5)
[2021-07-31 07:25] LABS: APTT 26 SECONDS (22-32); D-DIMER 0.71 MG/L FEU (0-0.50)
[2021-07-31 07:48] LABS: ALANINE AMINOTRANSFERASE 33 U/L (12-78); ALBUMIN 2.1 G/DL (3.4-5.0); ALBUMIN/GLOBULIN RATIO 0.6 (1.1-1.5); ALKALINE PHOSPHATASE 100 IU/L (46-116); ANION GAP 12 (8-16); ASPARTATE AMINO TRANSFERASE 51 U/L (10-37); BILIRUBIN,TOTAL 0.3 MG/DL (0.1-1.0); BLOOD UREA NITROGEN 12 MG/DL (7-18); BUN/CREATININE RATIO 17.6 (6.6-38.0); C-REACTIVE PROTEIN 4.79 MG/DL (0.0-0.5); CHLORIDE 113 MMOL/L (99-107); CREATININE 0.68 MG/DL (0.40-0.90); GLUCOSE 152 MG/DL (70-104); LACTATE DEHYDROGENASE 354 U/L (81-234); MAGNESIUM 2.4 MG/DL (1.5-2.4); PHOSPHORUS 2.7 MG/DL (2.3-4.5); POTASSIUM 3.8 MMOL/L (3.5-5.1); SODIUM 145 MMOL/L (135-145); TOTAL CARBON DIOXIDE 19.9 MMOL/L (24-32); TOTAL PROTEIN 5.7 G/DL (6.4-8.2); eGFR 87 ML/MIN
[2021-07-31] MEDS: K and/or MAG REPLACEMENT MC SCH ×2 (08:00→19:39)
[2021-07-31 08:16] LABS: TOTAL CELLS COUNTED 100
[2021-07-31 08:17] LABS: LARGE PLATELETS FEW; PLATELET ESTIMATE NORMAL
[2021-07-31 10:00] VITALS: BP 106/54
[2021-07-31 14:00] VITALS: BP 105/49
--- NOTE | 2021-07-31 14:30 | NUR ---
Appealing discharge Pt. received IMM letter to appeal discharge. [facility]
--- NOTE | 2021-07-31 16:55 | NUR ---
Discharge refusal Dr. Buck aware of patient staying the night; [facility]
[2021-07-31 18:00] VITALS: BP 100/47
--- NOTE | 2021-07-31 18:23 | NUR ---
Problems reprioritized. Patient report given, questions answered & plan of care reviewed with Reed LAY. [facility]
[2021-07-31] MEDS: atorvastatin 20mg tablet PO SCH (19:49)
[2021-07-31] MEDS: traZODone 50mg tablet PO SCH (19:49)
[2021-07-31 22:00] VITALS: BP 107/54
[2021-08-01 02:00] VITALS: BP 103/47
[2021-08-01] MEDS: ALBUTEROL INHALER 1 PUFF/90 MCG INHALER IH SCH ×5 (03:36→20:09)
[2021-08-01 06:55] VITALS: BP 116/58
[2021-08-01 07:11] LABS: BASOPHILS % (AUTO) 0.2 % (0-1); EOSINOPHILS % (AUTO) 0.1 % (0-6); HEMATOCRIT 30.1 % (35.0-45.0); HEMOGLOBIN 10.2 g/dl (12.0-16.0); LYMPHOCYTES # (AUTO) 1.1 X10'3 (1.1-4.8); MEAN CORPUSCULAR HEMOGLOBIN 33.9 PG (27.0-31.0); MEAN CORPUSCULAR VOLUME 99.7 FL (78-98); MONOCYTES # (AUTO) 0.7 X10'3 (0-0.9); MONOCYTES % (AUTO) 8.8 % (2-12); NEUTROPHILS # (AUTO) 6.6 X10'3 (1.8-7.7); NEUTROPHILS % (AUTO) 77.9 % (42-75); PLATELET COUNT 196 X10'3 (140-440); RED BLOOD COUNT 3.02 X10'6 (4.20-5.60); RED CELL DISTRIBUTION WIDTH 12.8 % (11.5-14.5); WHITE BLOOD COUNT 8.4 X10'3 (4.5-11.0)
[2021-08-01 07:16] LABS: APTT 28 SECONDS (22-32); D-DIMER 0.73 MG/L FEU (0-0.50)
[2021-08-01 07:42] LABS: ALANINE AMINOTRANSFERASE 37 U/L (12-78); ALBUMIN 2.1 G/DL (3.4-5.0); ALBUMIN/GLOBULIN RATIO 0.5 (1.1-1.5); ALKALINE PHOSPHATASE 99 IU/L (46-116); ANION GAP 10 (8-16); ASPARTATE AMINO TRANSFERASE 48 U/L (10-37); BILIRUBIN,TOTAL 0.3 MG/DL (0.1-1.0); BLOOD UREA NITROGEN 10 MG/DL (7-18); BUN/CREATININE RATIO 13.5 (6.6-38.0); C-REACTIVE PROTEIN 2.09 MG/DL (0.0-0.5); CALCIUM 8.2 MG/DL (8.5-10.1); CHLORIDE 112 MMOL/L (99-107); CREATININE 0.74 MG/DL (0.40-0.90); GLUCOSE 105 MG/DL (70-104); LACTATE DEHYDROGENASE 321 U/L (81-234); PHOSPHORUS 2.8 MG/DL (2.3-4.5); POTASSIUM 3.2 MMOL/L (3.5-5.1); SODIUM 145 MMOL/L (135-145); TOTAL CARBON DIOXIDE 22.9 MMOL/L (24-32); TOTAL PROTEIN 6.3 G/DL (6.4-8.2); eGFR 79 ML/MIN
[2021-08-01] MEDS: K and/or MAG REPLACEMENT MC SCH ×3 (08:00→20:02)
[2021-08-01 08:18] LABS: TOTAL CELLS COUNTED 100
[2021-08-01 08:19] LABS: LARGE PLATELETS FEW; PLATELET ESTIMATE NORMAL
[2021-08-01] MEDS: pantoprazole 40mg Tablet.DR PO SCH (08:26)
[2021-08-01] MEDS: furosemide 40mg tablet PO SCH (08:26)
[2021-08-01] MEDS: DEXAMETHASONE 6 MG TABLET PO SCH ×2 (08:26→20:17)
[2021-08-01] MEDS: topiramate 100mg tablet PO SCH ×2 (08:26→20:17)
[2021-08-01] MEDS: baclofen 10mg tablet PO SCH (08:26)
[2021-08-01] MEDS: montelukast 10mg tablet PO SCH (08:26)
[2021-08-01] MEDS: potassium chloride 10mEq ER tablet PO SCH (08:26)
[2021-08-01] MEDS: levetiracetam 250mg tablet PO SCH ×2 (08:26→20:17)
[2021-08-01] MEDS: enoxaparin 40mg/0.4ml syringe SUBCUT SCH ×2 (08:27→20:19)
[2021-08-01 09:55] VITALS: BP 129/62
[2021-08-01] MEDS: normal saline 1000ml 1,000 ML IV SCH ×2 (13:45→14:57)
--- NOTE | 2021-08-01 14:38 | NUR ---
Initial: Pt admit dx post-COVID PNA, acute respiratory failure, and hypoxemia per EMR. PO intake ~67% of regular meals, meeting 100% of estimated energy needs and 93% of estimated protein needs. Noted pt oxygen dependent on 3.0 L NC. LBM 3/2, not receiving bowel care. No nutrition intervention at this time. Will continue to monitor. Recommendations: 1. Continue regular diet as tolerated 2. Encourage PO intake 3. Bowel care per Rx 4. IF diarrhea continues, consider anti-diarrheal 5. Scaled wt this admit, subsequent weekly wt Addendum: 08/01/21 at 1438 by Sean Rubi Hydraulic Barker Operator ANITHA Amended: Links added. Addendum: 08/01/21 at [address] I have reviewed and agree with note by Hydraulic Barker OperatorFabian Smith RD
[2021-08-01 15:12] VITALS: BP 132/70
[2021-08-01] MEDS ORDERED: magnesium Cl slow-release 64mg tablet PO PRN (16:30)
[2021-08-01] MEDS ORDERED: potassium CL 10mEq/100ml bag 100 ML IV PRN (16:30)
[2021-08-01] MEDS ORDERED: potassium Cl 20 mEq SR tablet PO PRN (16:30)
[2021-08-01] MEDS ORDERED: magnesium 2GM in 50ml NS 50 ML IV PRN (16:30)
[2021-08-01] MEDS ORDERED: magnesium 4gm in 100ml NS 100 ML IV PRN (16:30)
[2021-08-01] MEDS: potassium Cl 20 mEq SR tablet PO PRN ×2 (16:55→20:18)
[2021-08-01 17:00] VITALS: BP 136/82
[2021-08-01] MEDS: levoFLOXACIN 500mg tablet PO SCH (17:58)
--- NOTE | 2021-08-01 18:20 | NUR ---
Problems reprioritized. Patient report given, questions answered & plan of care reviewed with ALIREZA Caceres.
[2021-08-01] MEDS: atorvastatin 20mg tablet PO SCH (20:17)
[2021-08-01] MEDS: traZODone 50mg tablet PO SCH (20:18)
[2021-08-01] MEDS ORDERED: diphenhydrAMINE 25mg capsule PO ONE (20:45)
[2021-08-01 22:00] VITALS: BP 133/70
[2021-08-02] MEDS: ALBUTEROL INHALER 1 PUFF/90 MCG INHALER IH SCH ×4 (00:09→12:05)
[2021-08-02 02:00] VITALS: BP 127/62
[2021-08-02 05:30] VITALS: BP 129/72
--- NOTE | 2021-08-02 06:30 | NUR ---
Patient in room [facility]TH[facility] 4023. I have received report from ALIREZA Juarez and had the opportunity to ask questions and assume patient care.
[2021-08-02 07:13] LABS: BASOPHILS % (AUTO) 0.2 % (0-1); EOSINOPHILS % (AUTO) 0 % (0-6); HEMATOCRIT 30.4 % (35.0-45.0); HEMOGLOBIN 10.3 g/dl (12.0-16.0); LYMPHOCYTES # (AUTO) 1.3 X10'3 (1.1-4.8); LYMPHOCYTES % (AUTO) 15.5 % (21-51); MEAN CORPUSCULAR HEMOGLOBIN 33.7 PG (27.0-31.0); MEAN CORPUSCULAR VOLUME 99.2 FL (78-98); MEAN PLATELET VOLUME 7.8 FL (7.4-10.4); MONOCYTES # (AUTO) 0.7 X10'3 (0-0.9); MONOCYTES % (AUTO) 8.6 % (2-12); NEUTROPHILS # (AUTO) 6.2 X10'3 (1.8-7.7); NEUTROPHILS % (AUTO) 75.7 % (42-75); PLATELET COUNT 204 X10'3 (140-440); RED BLOOD COUNT 3.06 X10'6 (4.20-5.60); WHITE BLOOD COUNT 8.2 X10'3 (4.5-11.0)
[2021-08-02 07:20] LABS: D-DIMER 0.82 MG/L FEU (0-0.50)
[2021-08-02 07:36] LABS: ALANINE AMINOTRANSFERASE 36 U/L (12-78); ALBUMIN 2.2 G/DL (3.4-5.0); ALBUMIN/GLOBULIN RATIO 0.5 (1.1-1.5); ALKALINE PHOSPHATASE 98 IU/L (46-116); ANION GAP 9 (8-16); ASPARTATE AMINO TRANSFERASE 37 U/L (10-37); BILIRUBIN,TOTAL 0.3 MG/DL (0.1-1.0); BLOOD UREA NITROGEN 11 MG/DL (7-18); BUN/CREATININE RATIO 15.1 (6.6-38.0); C-REACTIVE PROTEIN 1.13 MG/DL (0.0-0.5); CALCIUM 8.2 MG/DL (8.5-10.1); CHLORIDE 113 MMOL/L (99-107); CREATININE 0.73 MG/DL (0.40-0.90); GLUCOSE 123 MG/DL (70-104); LACTATE DEHYDROGENASE 311 U/L (81-234); PHOSPHORUS 2.5 MG/DL (2.3-4.5); SODIUM 145 MMOL/L (135-145); TOTAL CARBON DIOXIDE 23.1 MMOL/L (24-32); TOTAL PROTEIN 6.4 G/DL (6.4-8.2); eGFR 80 ML/MIN
[2021-08-02] MEDS: K and/or MAG REPLACEMENT MC SCH (08:00)
[2021-08-02] MEDS: normal saline 1000ml 1,000 ML IV SCH (08:44)
[2021-08-02] MEDS: montelukast 10mg tablet PO SCH (08:44)
[2021-08-02] MEDS: DEXAMETHASONE 6 MG TABLET PO SCH (08:45)
[2021-08-02] MEDS: baclofen 10mg tablet PO SCH (08:45)
[2021-08-02] MEDS: potassium chloride 10mEq ER tablet PO SCH (08:45)
[2021-08-02] MEDS: topiramate 100mg tablet PO SCH (08:45)
[2021-08-02] MEDS: levetiracetam 250mg tablet PO SCH (08:45)
[2021-08-02] MEDS: furosemide 40mg tablet PO SCH (08:45)
[2021-08-02] MEDS: pantoprazole 40mg Tablet.DR PO SCH (08:45)
[2021-08-02] MEDS: enoxaparin 40mg/0.4ml syringe SUBCUT SCH (08:46)
[2021-08-02 10:00] VITALS: BP 115/68
[2021-08-02] MEDS: levoFLOXACIN 500mg tablet PO SCH (11:44)
[2021-08-02] MEDS ORDERED: LEVO500T90 PO (12:06)
[2021-08-02] MEDS ORDERED: PRED20TA PO (12:06)
--- NOTE | 2021-08-02 15:00 | NUR ---
DC inst provided to pt. IV DC's, tip intact. All belongings sent w/pt. WC to vehicle.
== END 2021-08-02 14:55 | disposition home or self-care (01) | DRG 871 ==
LOC: ER 11:40 → ED HOLD 15:53 → ORTHO 4S 21:11
PROVIDERS: ADMIT Family Medicine; ATTEND Family Medicine
PROC: B32T1ZZ Computerized Tomography (CT Scan) of Left Pulmonary Artery using Low Osmolar Contrast (ICD-10-PCS; principal; 2021-07-29)
PROC: B3201ZZ Computerized Tomography (CT Scan) of Thoracic Aorta using Low Osmolar Contrast (ICD-10-PCS; 2021-07-29)
PROC: B32S1ZZ Computerized Tomography (CT Scan) of Right Pulmonary Artery using Low Osmolar Contrast (ICD-10-PCS; 2021-07-29)
DX: A41.9 Sepsis, unspecified organism (principal); J12.82 Pneumonia due to coronavirus disease 2019; J96.21 Acute and chronic respiratory failure with hypoxia; J44.0 Chronic obstructive pulmonary disease with (acute) lower respiratory infection; U09.9 Post COVID-19 condition, unspecified; E87.6 Hypokalemia; F32.A Depression, unspecified; E78.5 Hyperlipidemia, unspecified; G35 Multiple sclerosis; G40.909 Epilepsy, unspecified, not intractable, without status epilepticus; Z85.42 Personal history of malignant neoplasm of other parts of uterus; Z87.891 Personal history of nicotine dependence; Z90.710 Acquired absence of both cervix and uterus; Z99.81 Dependence on supplemental oxygen; Z88.5 Allergy status to narcotic agent; Z88.2 Allergy status to sulfonamides; Z88.7 Allergy status to serum and vaccine; Z91.041 Radiographic dye allergy status; Z90.49 Acquired absence of other specified parts of digestive tract
CPT/HCPCS: 36415; 71045; 71275; 80053; 80061; 81001; 81025; 83605; 83615; 83690; 83735; 83880; 84100; 84132; 84145; 84443; 84484; 85007; 85025; 85379; 85610; 85730; 86140; 87040; 87081; 87088; 93005; 94640; 94668; 94760; 96365; 96368; 97116; 97161; 97530; 99285; G0378; J0696; J1650; J3475; J7030; J8540; Q0163; Q9967